=== PATIENT | male | born 1930 | race Caucasian/White ===

== ENCOUNTER 2017-01-17 10:36 | Emergency (ER) | payer MEDICARE, BC ==
[2005-12-01 00:38] VITALS: BP 87/59
[~2017-01-17] VITALS: Ht 180.3 cm; Wt 105.0 kg
[~2017-01-17 10:36] MED LIST: ALDACTONE 25MG25 M1 PO; ALDACTONE 25MG25 MG PO; ALTACE 2.5MG T2.5 MG PO; AMBIEN 10MG10 MG PO; AMOXICILLIN 50500 MG PO; ASACOL PO; ASACOL400 MG PO; ASPIR-LOW81 MG PO; ASPIRIN 81M81 MG/TA2 PO; AZULFIDINE500 MG/TAB PO; BIAXIN FILMTAB500 MG PO; BUMEX2 MG PO; BYSTOLIC2.5 MG PO; CAPOTEN 12.512.5 MG PO; CARDIZEM CD 18180 MG PO; CARDIZEM ER 12120 MG PO; CARVEDILOL6.25 MG PO; CEFTIN 250250 MG/TAB PO; CEPHALEXIN500 M1 PO; CLARITIN 1010 MG/TAB PO; CLOPIDOGREL PO; CORDARONE200 MG/TAB PO; COREG 3.123.125 MG/T PO; COREG 6.256.25 MG/TA PO; COREG12.5 MG PO; COUMADIN; COUMADIN 1MG1 MG/TAB PO; COUMADIN 2MG2 MG/TAB PO; COUMADIN 5MG5 MG/TAB PO; DAZIDOX10 MG PO; DEMADEX 20MG20 M1 PO; DIABETA 2.5MG2.5 MG PO; DIOVAN HCT PO; DIOVAN160 MG PO; DITROPAN XL 5MG5 M1 PO; DULCOLAX S10 MG/SUPP RC; FERROUS SU325 MG/TAB PO; FLOMAX 0.40.4 MG/CAP PO; FORTAMET1000 MG PO; FUROSEMIDE20 MG PO; GLUCOPHAGE PO; GLYNASE 3MG3 MG/TAB PO; HCTZ 25MG25 MG PO; IPRATROPIUM BROM3 M1 IH; JANUVIA50 MG PO; LANSOPRAZOLE30 MG PO; LASIX 20MG TABL20 MG PO; LIDODERM 5% PATC1 EA TP; LOVENOX100 MG/M1 SC; MAGCITRATE PO; MAGNESIUM CITRATE PO; METAMUCIL PO; METAMUCIL1 PDR PO; METFORMIN500 MG PO; MIRALAX PA17 GM/Dose PO; MOBIC15 MG PO; NEURONTIN300 MG/CAP PO; NORCO 325 MG-51 TAB PO; NOVLOG SQ; OMEPRAZOLE DR20 MG PO; OXYCONTIN 10MG10 MG PO; PACERONE200 MG PO; PLAVIX 75MG TAB75 MG PO; PREDNISONE 5MG5 MG PO; ROXICODONE 55 MG/TAB PO; RT SPIRIVA18 MCG IH; Remove Patch TD; SENOKOT S 50 MG1 TAB PO; SODIUM BICARBO650 MG PO; SULFAZINE500 MG PO; TAZTIA XT PO; TYLENOL 325MG325 MG PO; VOLTAREN GEL 1%1 TU TP; WARFARIN SOD5 MG PO; ZOCOR 20MG20 MG PO; asacol PO
[2017-01-17 10:42] VITALS: PULSE 80; TEMP 97
[2017-01-17 12:04] LABS: PH 5 (5-8); SQUAMOUS EPITHELIAL None Seen /hpf; URINE APPEARANCE Clear; URINE BACTERIA None Seen /hpf; URINE BILIRUBIN Negative (NEGATIVE); URINE BLOOD Negative (NEGATIVE); URINE COLOR Yellow; URINE GLUCOSE Negative (NEGATIVE); URINE KETONE Negative (NEGATIVE); URINE RBC 0-2 /hpf; URINE UROBILINOGEN Negative (NEGATIVE); URINE WBC 0-2 /hpf
[2017-01-17] MEDS ORDERED: COREG12.5 MG PO (13:06)
[2017-01-17 13:10] VITALS: BP 124/83
== END 2017-01-17 13:11 | disposition home or self-care (01) ==
LOC: COL.ER 10:36
PROVIDERS: Emergency Medicine
DX: N40.1 Benign prostatic hyperplasia with lower urinary tract symptoms (principal); R33.8 Other retention of urine; E11.22 Type 2 diabetes mellitus with diabetic chronic kidney disease; I13.0 Hypertensive heart and chronic kidney disease with heart failure and stage 1 through stage 4 chronic kidney disease, or unspecified chronic kidney disease; N18.9 Chronic kidney disease, unspecified; I50.9 Heart failure, unspecified; Z66 Do not resuscitate; Z79.01 Long term (current) use of anticoagulants; Z79.84 Long term (current) use of oral hypoglycemic drugs; Z85.46 Personal history of malignant neoplasm of prostate; Z86.718 Personal history of other venous thrombosis and embolism; Z95.0 Presence of cardiac pacemaker